=== PATIENT | male | born 1955 | race Caucasian/White ===

== ENCOUNTER 2019-04-30 10:23 | Inpatient (IN) ==
--- NOTE | 2019-04-30 12:08 | Diag Imaging Result Doc PS360 ---
EXAM: ABDOMEN FLAT/UPRIGHT INDICATION: ABDOMINAL DISTENTION TECHNIQUE: 3 views COMPARISON: 05/30/2013 FINDINGS: There is marked gaseous distention of the stomach and there is moderate to severe gaseous distention of small bowel. High-grade small bowel obstruction cannot be excluded. There is a smaller amount of gas in the colon. No large volume free abdominal gas is appreciated. There are stable metallic clips in the right upper quadrant. IMPRESSION: Gaseous distention of the stomach, small bowel, and, to a lesser degree, the colon. Bowel obstruction cannot be excluded. Electronically signed by Tawanda Bruno 04/30/2019 12:05 PM
[2019-04-30] MEDS ORDERED: ATROVENT HFA INH PRN (12:25)
[2019-04-30] MEDS ORDERED: NS 1,000 ML IV SCH (12:25)
[2019-04-30] MEDS: LOVENOX SUBQ SCH (13:09)
[2019-04-30] MEDS ORDERED: CHLORASEPTIC SPRAY MT ONE (13:51)
[2019-04-30 13:53] LABS: URINE SOURCE CLEAN CATCH
[2019-04-30 13:59] LABS: BILIRUBIN URINE SMALL (NEGATIVE); BLOOD URINE NEGATIVE (NEGATIVE); COLOR YELLOW; GLUCOSE URINE NEGATIVE (NEGATIVE); KETONE URINE TRACE mg/dL (NEGATIVE); LEUKOCYTES URINE NEGATIVE (NEGATIVE); NITRITE URINE NEGATIVE (NEGATIVE); PROTEIN URINE 50 mg/dL (NEGATIVE); SP GRAVITY URINE 1.043; TURBIDITY URINE CLEAR (CLEAR); UR EPITHELIAL CELLS <10 /HPF (<10); URINE BACTERIA NEGATIVE /HPF; URINE RBC <10 /HPF (<10); URINE WBC <10 /HPF (<10); UROBILINOGEN URINE 2 mg/dL (NORMAL)
--- NOTE | 2019-04-30 14:05 | Diag Imaging Result Doc PS360 ---
EXAM: CHEST-PORTABLE 04/30/2019 HISTORY: NG tube placement TECHNIQUE: AP portable at 1359 COMMENT: The stomach and colon are distended with gas. There is a NG tube with its tip in the gastric antrum. IMPRESSION: NG tube in the stomach. Electronically signed by Gianluca Cotton 04/30/2019 2:03 PM
[2019-04-30 14:11] LABS: BASO# 0.01 X1000 (0.0-0.2); BASO% 0.1 % (0.0-0.8); HEMOGLOBIN 15.7 g/dL (14.0-18.0); LYMPH# 1.34 X1000 (1.2-3.4); LYMPH% 15.7 % (20.5-51.1); MCH 30.1 PG (27-31); MCHC 32.7 g/dL (33-37); MCV 92.1 FL (81-99); MONO# 0.96 X1000 (0.11-0.59); MONO% 11.3 % (1.7-9.3); MPV 9.8 FL (7.4-10.4); NEUT# 6.21 X1000 (1.4-6.5); NEUT% 72.9 % (42.2-75.2); PLT 237 X1000 (130-400); RBC 5.21 XMIL (4.7-6.1); RDW 12.8 % (11.5-14.5); WBC 8.52 X1000 (4.8-10.8)
[2019-04-30 14:39] LABS: AGAP 15; BUN 13 mg/dL (8-22); CALCIUM 9.1 mg/dL (8.8-10.2); CHLORIDE 103 mmol/L (98-107); COSMO 275; ESTIMATED GFR > 60; GLUCOSE 110 mg/dL (70-104); SODIUM 137 mmol/L (136-145); TCO2 19 mmol/L (25-35)
[2019-04-30] MEDS: MORPHINE IV PRN ×2 (17:58→23:09)
--- NOTE | 2019-04-30 18:33 | CONSULTATION ---
DATE OF CONSULTATION: 04/30/2019 HISTORY OF PRESENT ILLNESS: Mr. Anthony Fierro is a 64-year-old white male, patient of Dr. Mal Gongora, who was admitted with abdominal distention, recent diarrhea, and crampy abdominal pain. A plain film suggested a small bowel obstruction and we were asked to evaluate him. PAST MEDICAL HISTORY: Has a complicated surgical history in the past. Dr. Hennessy performed a Francine fundoplication on him and this was complicated by an arterial injury. However, since this operation his reflux has been well-controlled and he does not even take Tums anymore. He has had a cholecystectomy. He has had knee surgery. He has suffered multiple times with prolonged ileus. After his knee surgery he stated that he was hospitalized for a month because of ileus. MEDICATIONS: Pulmicort, Atrovent. ALLERGIES: Levaquin and Flagyl. 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 He does not smoke. FAMILY HISTORY: Family history was reviewed and was noncontributory. REVIEW OF SYSTEMS: A 14 point review of systems was performed and was essentially negative except for the history of present illness. PHYSICAL EXAMINATION: General: On exam, Mr. Fierro is a middle-aged white male, with an NG tube in. His abdomen is distended. He is in no acute distress. Skin: He has no jaundice. HEENT: No oral lesions. Satisfactory dentition. Lymphatic: No cervical or supraclavicular lymphadenopathy. Heart: Regular rate. Lungs: Clear with no work of breathing. Abdomen: Distended but not tightly. There was no evidence of hernia. He has well-healed incisions. He had mild tenderness in the periumbilical area. He had no costovertebral tenderness. Rectal: Exam was not performed. Extremities: He does have palpable peripheral pulses. No peripheral edema. Neurological: He is alert and oriented x3 and appropriate. IMPRESSION: He has had recent diarrhea but he has had increasing abdominal distention and crampy abdominal pain. X-rays suggest possible small bowel obstruction. He has had previous abdominal surgery. I see no evidence of hernia on exam. PLAN: Because of his history of ileus in the past, I agree with NG suction, IV fluids in hopes that this ileus versus small bowel obstruction resolves without surgery. We will follow along with you. cc: MD Steph Montes MD
[2019-04-30] MEDS: PULMICORT FLEXHALER INH SCH (20:55)
[2019-05-01] MEDS: MORPHINE IV PRN ×5 (04:04→22:16)
[2019-05-01] MEDS: PULMICORT FLEXHALER INH SCH ×2 (08:41→20:06)
--- NOTE | 2019-05-01 08:52 | PROGRESS NOTE ---
DATE: 05/01/2019 SUBJECTIVE: Mr. Anhtony Fierro is a 64-year-old white male, who has had multiple abdominal surgeries in the past by Dr. Hennessy, including a Francine fundoplication and cholecystectomy. He has also had a history of prolonged ileus after abdominal surgery and even after an orthopedic knee surgery. After his orthopedic procedure, he was hospitalized for almost a month because of a prolonged ileus. He was admitted by Dr. Mal Gongora for abdominal distention and cramping, and x- ray suggestive of a small bowel obstruction. An NG tube has been placed. This is hospital day 2 and clinically feels better. He is having less abdominal cramping. His abdomen is not tightly distended, but still distended. He states that he has had no flatus. He has not had a dramatic amount of output from his NG tube; it is recorded as about 400 mL since his admission. He is complaining of some left ear pain and that is probably related to his NG tube. His heart rate 69, blood pressure 129/78, O2 saturation 96%. He is afebrile. He is 5 feet 10 inches and weighs 223 pounds. PLAN: I ordered Protonix just to cut down the acid of his stomach. His NG tube remains in place. We are allowing him to have ice chips. I have changed his IV fluids so that he will get some calories from normal saline to D5 and half normal saline with 20 mEq of potassium. I have decided to proceed with a CT scan of his abdomen and pelvis using IV and oral contrast just to be sure there is nothing obviously surgical about his small-bowel obstruction. I am also thinking of a followup Gastrografin challenge if needed to determine whether this is small bowel obstruction versus ileus. We will check electrolytes and a CBC tomorrow. I have asked that he move around in his room throughout the day. cc: MD Steph Montes MD
--- NOTE | 2019-05-01 12:40 | PROGRESS NOTE ---
DATE: 05/01/2019 SUBJECTIVE: The patient's history was reviewed. In summary, patient states approximately 4 days ago, he and his went out to dinner. Thereafter, he developed significant diarrhea without hematochezia or melena. He was noted to have increasing abdominal distention. He also noted decreasing flatus. The patient presented for further evaluation and management yesterday. Abdominal x-ray suggested gaseous distention of the stomach, small bowel, and to a lesser degree the colon. Patient was admitted to the hospital. NG tube was placed. Dr. Nguyen was consulted. Over the course of the first 24 hours, overall, patient states he has done reasonably well. His abdominal distention has decreased. He is not, however, passing flatus or have had a bowel movement. He denies current vomiting. Fever has been as high as 100.8. OBJECTIVE: T-max 100.8 degrees, heart rate 69 to 94, respirations 14 to 20, blood pressure 115 to 129 over 65 to 89.General: Well nourished, well developed in no acute distress. Cardiovascular: Regular rate and rhythm. No significant murmurs, rubs, or gallops. Pulmonary: Clear to auscultation bilaterally. Abdomen: Slightly distended. Minimal tenderness diffusely. Decreased bowel sounds. Extremities: Moves all extremities well. No significant clubbing, cyanosis, or edema. Dermatologic: Evaluation reveals no evidence of rash. LABORATORY DATA: None. ASSESSMENT AND PLAN: 1. Ileus versus small bowel obstruction-Historically, patient has developed prolonged ileus associated with surgical intervention. With an acute abdominal illness, likely an enteritis proceeding his symptoms, I am concerned this again represents an ileus. Bowel sounds are decreased. I cannot fully rule out adhesive disease/obstruction in the setting of previous abdominal surgeries. I agree with Dr. Nguyen, a CT scan is warranted. This has been scheduled. We will continue NG tube suction and IV fluids. I will initiate Reglan 5 mg IV q.12 hours. 2. Left ear pain-On examination, I do not see any concerning findings per otoscope examination. I suspect this represents pain associated with his NG tube. We will remain aware. 3. Reflux disease-patient will be continued on pantoprazole therapy IV q.12 hours. 4. Migraine headaches-Patient's Topamax has been held. We will resume this once taking p.o. 5. Disposition. At this point, patient continues to require correction care in a hospital setting. We will plan discharge home once appropriate. cc: MD Steph Martinez MD
[2019-05-01] MEDS: PROTONIX IV SCH (12:48)
[2019-05-01] MEDS: D5 1/2 NS + KCL 20 MEQ 1,000 ML IV SCH (12:48)
[2019-05-01] MEDS: SODIUM CHLORIDE 0.9% INJ SCH ×2 (12:48→22:16)
[2019-05-01] MEDS: LOVENOX SUBQ SCH (12:53)
[2019-05-01] MEDS: SODIUM CHLORIDE 0.9% INJ PRN (15:07)
[2019-05-01] MEDS: PHENERGAN IV PRN ×2 (15:07→22:16)
--- NOTE | 2019-05-01 17:30 | Diag Imaging Result Doc PS360 ---
EXAM: CT ABD/PELVIS W/PO AND IV CON HISTORY: Small bowel obstruction. TECHNIQUE: CT abdomen and pelvis with oral and intravenous contrast COMPARISON: 09/10/2014 FINDINGS: There is a nasogastric tube within the stomach. The gallbladder has been removed. There is fatty infiltration of the liver. Normal spleen, pancreas, adrenal glands, and kidneys. No hydronephrosis. Normal aorta. Prominent stool in the proximal colon. Air distended transverse colon. There is stool distally. No point of obstruction. No ascites. No abscess. Urinary bladder is distended and appears normal. Normal prostate. IMPRESSION: 1.Air distended transverse colon, but no definite evidence of bowel obstruction 2.Cholecystectomy 3.Fatty infiltration of the liver This exam was performed using automated exposure control, adjustment of mA or kV according to patient size, and/or use of iterative reconstruction technique. Electronically signed by David Bledsoe 05/01/2019 5:28 PM
[2019-05-01] MEDS: REGLAN IV SCH (22:17)
[2019-05-02] MEDS: MORPHINE IV PRN ×2 (02:17→07:46)
[2019-05-02] MEDS: D5 1/2 NS + KCL 20 MEQ 1,000 ML IV SCH ×2 (02:19→14:56)
[2019-05-02 06:57] LABS: BASO# 0.04 X1000 (0.0-0.2); BASO% 0.5 % (0.0-0.8); HEMATOCRIT 45.8 % (42.0-52.0); HEMOGLOBIN 14.9 g/dL (14.0-18.0); LYMPH# 1.65 X1000 (1.2-3.4); LYMPH% 19.6 % (20.5-51.1); MCH 30.5 PG (27-31); MCHC 32.5 g/dL (33-37); MCV 93.9 FL (81-99); MONO# 1.01 X1000 (0.11-0.59); MPV 9.4 FL (7.4-10.4); NEUT# 5.73 X1000 (1.4-6.5); NEUT% 67.9 % (42.2-75.2); PLT 206 X1000 (130-400); RBC 4.88 XMIL (4.7-6.1); RDW 12.8 % (11.5-14.5); WBC 8.43 X1000 (4.8-10.8)
[2019-05-02 07:23] LABS: AGAP 14; BUN 12 mg/dL (8-22); CALCIUM 8.5 mg/dL (8.8-10.2); CHLORIDE 101 mmol/L (98-107); COSMO 274; CREATININE 0.8 mg/dL (0.7-1.2); ESTIMATED GFR > 60; GLUCOSE 106 mg/dL (70-104); POTASSIUM 3.9 mmol/L (3.5-5.1); SODIUM 137 mmol/L (136-145); TCO2 22 mmol/L (25-35)
[2019-05-02] MEDS: PULMICORT FLEXHALER INH SCH ×2 (08:18→19:54)
[2019-05-02] MEDS: SODIUM CHLORIDE 0.9% INJ SCH (09:30)
[2019-05-02] MEDS: REGLAN IV SCH ×2 (09:31→21:21)
[2019-05-02] MEDS: PROTONIX IV SCH (09:31)
--- NOTE | 2019-05-02 11:22 | PROGRESS NOTE ---
DATE: 05/02/2019 SUBJECTIVE: Mr. Anthony Fierro is now hospital day 3, admitted with abdominal distention and possible small-bowel obstruction. We got a CT scan yesterday with IV and oral contrast, which suggested a distended colon, but no evidence of small bowel obstruction. He has had very little out of his NG tube over the last 24 hours. His abdomen remains distended. There appears to be no tenderness. He states that he has had no flatus. His white blood cell count is normal. Electrolytes are within normal limits. His heart rate is 80, blood pressure 137/81, O2 saturation 94%, he is afebrile. PLAN: I will remove his NG tube. It is causing some left ear pain, and he also has a very sore throat, and I think it is keeping him from moving around his room. I have also reviewed his CT scan with our radiologist, Dr. Cotton. I am going to send him down today for a water-soluble enema in hopes that we can get his colon functioning. Will keep him n.p.o. at this time. IV fluids continue. cc: MD Steph Montes MD
--- NOTE | 2019-05-02 11:26 | PROGRESS NOTE ---
DATE: 05/02/2019 SUBJECTIVE: Mr. Fierro was admitted to [facility] with what appeared to be a partial small-bowel obstruction. We placed an NG tube to low Gomco suction. This morning, he had much less abdominal distention. His abdominal discomfort has improved significantly. He has not had any nausea or vomiting. A CT scan of the abdomen and pelvis demonstrated air distended transverse colon, without definite evidence of bowel obstruction. OBJECTIVE: Vital Signs: Temperature 98.2 degrees, pulse 80, respirations 16, BP 137/81. CV: Regular rate and rhythm. Lungs: Clear. Abdomen: Mildly distended, but soft. He does have hypoactive bowel sounds. Extremities: Without edema. ASSESSMENT AND PLAN: Ileus versus pseudoobstruction of the transverse colon. CT scan of the abdomen and pelvis did not show any obvious obstruction. He does have stool in the right side of his colon. I have spoken to Dr. Nguyen, and agree with discontinuing the nasogastric tube and proceeding with a barium enema using water-soluble contrast to hopefully stimulate the bowel. We will begin clear liquids, and advance his diet as tolerated. cc: Steph Gongora MD
--- NOTE | 2019-05-02 13:20 | Diag Imaging Result Doc PS360 ---
EXAM: BARIUM ENEMA INDICATION: Colonic ileus TECHNIQUE: Water-soluble iodinated contrast was administered per rectum under fluoroscopy and images were obtained in usual fashion. COMPARISON: Barium enema dated 12/20/2012 FINDINGS: There is marked distention of the transverse colon, which is also seen on a recent CT. However, no obvious stricture is identified. Barium passes all the way to the cecum. No filling defects are identified. Most of the barium that was infused was then drained. Postprocedural radiograph still showed significant distention of the transverse colon. IMPRESSION: Marked distention of the transverse colon with no obvious stricture on this study consistent with the history of colonic ileus. Electronically signed by Tawanda Bruno 05/02/2019 1:17 PM
[2019-05-02] MEDS: LOVENOX SUBQ SCH (14:58)
[2019-05-02] MEDS: SODIUM CHLORIDE 0.9% INJ PRN (21:20)
[2019-05-02] MEDS: PHENERGAN IV PRN (21:21)
[2019-05-03] MEDS: PULMICORT FLEXHALER INH SCH (07:45)
--- NOTE | 2019-05-03 08:09 | Diag Imaging Result Doc PS360 ---
EXAM: ABDOMEN FLAT/UPRIGHT 05/03/2019 HISTORY: ileus TECHNIQUE: Flat and upright abdomen five views COMMENT: There is marked colonic dilatation with gas including the ascending and transverse colon. Some gas is seen in the descending colon which is not particularly distended. The intima performed on 05/02/19992017 did not demonstrate a mechanical obstruction at the level of the splenic flexure however there may be a functional obstruction at this level. There is consistent dilatation of the colon proximal to the splenic flexure. The distal transverse colon measures over 17 cm in diameter. IMPRESSION: Chronic proximal colonic ileus. Electronically signed by Gianluca Cotton 05/03/2019 8:07 AM
[2019-05-03] MEDS ORDERED: MIRALAX PO SCH (09:00)
--- NOTE | 2019-05-03 09:07 | PROGRESS NOTE ---
DATE: 05/03/2019 SUBJECTIVE: Mr. Fierro is tolerating a full liquid diet without nausea, vomiting, or abdominal pain. He has had several large bowel movements. He has passed some loose stools. He is currently passing flatus. Flat and upright abdominal film demonstrated colonic dilatation in the ascending and transverse colon consistent with a chronic proximal colonic ileus. OBJECTIVE: Vital signs: Temperature 98.7 degrees, pulse 68, respirations 20, BP 113/78. CV: Regular rate and rhythm. Lungs: Clear. Abdomen: Less distended as compared to 05/02/2019. He has good bowel sounds. Belly is soft but mildly distended. ASSESSMENT AND PLAN: Chronic ileus. I am going to advance him to a GI soft diet. We will begin a more aggressive bowel prep with MiraLAX 17 g in 8 ounces of water daily, and Linzess 145 mg daily. cc: Steph Gongora MD
[2019-05-03] MEDS: D5 1/2 NS + KCL 20 MEQ 1,000 ML IV SCH (09:51)
[2019-05-03] MEDS: REGLAN IV SCH (09:53)
[2019-05-03] MEDS: PROTONIX IV SCH (09:53)
[2019-05-03] MEDS: SODIUM CHLORIDE 0.9% INJ SCH (09:53)
[2019-05-03 11:20] VITALS: BP 123/76
[2019-05-04] MEDS ORDERED: LINZESS PO SCH (07:00)
[2019-05-04] MEDS ORDERED: MIRALAX PO SCH (09:00)
--- NOTE | 2019-05-09 09:38 | DISCHARGE SUMMARY ---
ADMISSION DATE: 04/30/2019 DISCHARGE DATE: 05/03/2019 DISCHARGE DIAGNOSES: 1. Primary chronic pseudo-obstruction of the colon. 2. Mild persistent asthma. 3. Gastroesophageal reflux disease. DISCHARGE INSTRUCTIONS: 1. Return to clinic in 1 week to see me, Dr. Mal Gongora. 2. Activity as tolerated. 3. GI bland diet. MEDICATIONS: Linzess 145 mcg daily, MiraLAX 17 g in 8 ounces of water daily, Topamax 25 mg at bedtime, Atrovent 2 puffs at bedtime, Welchol 625 mg at night, Pulmicort 2 inhalations b.i.d., Nexium 40 mg daily and Lunesta 3 mg at bedtime. PHYSICAL EXAMINATION: General: This is a well-developed, well-nourished, 64-year-old gentleman in no apparent distress. He is afebrile. Vital signs: Stable. CV: Regular rate and rhythm. Lungs: Lungs clear. Abdomen: Soft, nontender with active bowel sounds. HOSPITAL COURSE: Mr. Anthony Fierro was admitted to [facility] for evaluation of abdominal pain. I initially suspected that he had an early small-bowel obstruction. His initial flat and upright abdominal film demonstrated gaseous distention of the stomach, small bowel and colon. We held him n.p.o., cautiously rehydrated him, and began an NG tube to low Goo suction. I consulted Dr. Nguyen for surgical evaluation. On hospital day #2, he reported that his abdominal distention has decreased. He was still not passing any flatus and did not have a bowel movement. A CT scan of the abdomen and pelvis demonstrated air-distended transverse colon without evidence of bowel obstruction. We performed a barium enema not for the purpose of diagnostics, but as a way to stimulate the gut. Following the barium enema, he had large amounts of diarrhea and soft stools. The NG tube was discontinued. He was started on a clear liquid diet, and his diet was advanced as tolerated. He was tolerating a GI soft diet at the time of discharge without abdominal pain, abdominal distention or bloating. We suspect that he has a chronic pseudo obstruction and ileus. We are going to begin a more aggressive bowel prep. We started him on MiraLAX 17 g in 8 ounces of water daily, and added Linzess 145 mg daily. Having reached maximum hospital benefit, the patient was discharged in stable condition. cc: Steph Gongora MD
== END 2019-05-03 12:10 | disposition home or self-care (01) | DRG 390 ==
LOC: RAD 10:23 → DIRADM 12:07 → 4N 12:15
PROVIDERS: ADMIT Internal Medicine; ATTEND Internal Medicine